=== PATIENT | male | born 1975 | race Caucasian/White ===

== ENCOUNTER 2022-06-07 13:29 | Emergency (ER) | payer BC ==
[~2022-06-07] VITALS: Ht 177.8 cm; Wt 140.6 kg
[2022-06-07 13:36] VITALS: BP_SYST 138
[2022-06-07] MEDS ORDERED: LIDOCAINE 2%, 20 ML MDV INJ ONE (13:45)
[2022-06-07] MEDS ORDERED: LIDOCAINE 1%, 20 ML MDV 20 ML ONE ×2 (14:23→15:04)
[2022-06-07] MEDS ORDERED: LIDOCAINE 2%, 20 ML MDV ONE (14:23)
[2022-06-07] MEDS ORDERED: BACITRACIN 1 GM OINT TP ONE (14:36)
[2022-06-07] MEDS ORDERED: KETOROLAC TROMETHAMINE 60 MG/2 ML VIAL IM ONE (14:45)
[2022-06-07] MEDS ORDERED: ceFAZolin SODIUM 1 GM VIAL IM ONE (14:45)
[2022-06-07] MEDS ORDERED: NAPR-690 PO (15:10)
[2022-06-07] MEDS ORDERED: CEPH-548 PO (15:10)
== END 2022-06-07 15:16 | disposition home or self-care (01) ==
LOC: SED 13:29
DX: S81.811A Laceration without foreign body, right lower leg, initial encounter (principal); Z79.899 Other long term (current) drug therapy; V18.0XXA Pedal cycle driver injured in noncollision transport accident in nontraffic accident, initial encounter; Y93.89 Activity, other specified; Y92.89 Other specified places as the place of occurrence of the external cause; Y99.8 Other external cause status
CPT/HCPCS: 73564; 99283; 99284; 96372; 12005; J0690; J1885; J2001 ×2

== ENCOUNTER 2022-06-09 09:59 | Emergency (ER) | payer BC ==
[~2022-06-09] VITALS: Ht 177.8 cm; Wt 140.6 kg
[~2022-06-09 09:59] MED LIST: CEPH-548 PO; NAPR-690 PO
[2022-06-09 10:13] VITALS: BP_SYST 137
--- NOTE | 2022-06-09 10:18 | NUR ---
Patient to [facility] chair one to gown for evaluation. Side rails up. Report given to SEGUN Lopez.
--- NOTE | 2022-06-09 10:22 | NUR ---
DR. MCCORMICK TO CHAIR ONE TO ASSESS PT.
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
[2022-06-09 10:37] VITALS: BP_SYST 135
[2022-06-09] MEDS ORDERED: BACITRACIN 1 GM OINT TP ONE ×2 (10:39→10:45)
--- NOTE | 2022-06-09 10:39 | NUR ---
Patient given written and verbal discharge instructions and verbalizes understanding. ER MD discussed with patient the results and treatment provided. Patient in stable condition. ID arm band removed. active bleeding. Patient educated on pain management and to follow up with PMD. Pain Scale 2\10. Opportunity for questions provided and answered. Medication side effect fact sheet provided.
== END 2022-06-09 10:37 | disposition home or self-care (01) ==
LOC: SED 09:59
DX: Z48.00 Encounter for change or removal of nonsurgical wound dressing (principal)
CPT/HCPCS: 99282

== ENCOUNTER 2022-06-19 09:24 | Emergency (ER) | payer BC ==
[~2022-06-19] VITALS: Ht 180.3 cm; Wt 142.9 kg
--- NOTE | 2022-06-19 09:25 | NUR ---
Patient to ER bed 6 to gown for evaluation. Side rails up. Report given to STEVIE CAST
[2022-06-19 09:30] VITALS: BP_SYST 180
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
[2022-06-19] MEDS ORDERED: BACITRACIN 1 GM OINT TP ONE (09:51)
--- NOTE | 2022-06-19 09:51 | NUR ---
MD DR MCCORMICK AT BEDSIDE
--- NOTE | 2022-06-19 10:02 | NUR ---
Patient given written and verbal discharge instructions and verbalizes understanding. ER MD DR MCCORMICK discussed with patient the results and treatment provided. Patient in stable condition. ID arm band removed. Patient educated on pain management and to follow up with PMD. Pain Scale 0/10. Opportunity for questions provided and answered. Medication side effect fact sheet provided.
[2022-06-19 10:05] VITALS: BP_SYST 170
== END 2022-06-19 10:05 | disposition home or self-care (01) ==
LOC: SED 09:24
DX: Z48.00 Encounter for change or removal of nonsurgical wound dressing (principal); Z79.899 Other long term (current) drug therapy
CPT/HCPCS: 99281

== ENCOUNTER 2022-06-29 09:11 | Emergency (ER) | payer BC ==
[~2022-06-29] VITALS: Ht 180.3 cm; Wt 142.9 kg
[2022-06-29 09:15] VITALS: BP_SYST 168
--- NOTE | 2022-06-29 09:15 | NUR ---
Placed in room 01 . Placed on air sampling and monitoring, blood pressure machine and pulse oximeter. To gown for exam. Side rails up. Report given to JAZLYN ROSALES.
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
--- NOTE | 2022-06-29 09:20 | NUR ---
ER DR. SOLORIO AT THE BEDSIDE EXAMINING PT
--- NOTE | 2022-06-29 09:40 | NUR ---
Pt tolerated suture removal of 30 stitches well. No redness, no discharge, no odor present.
--- NOTE | 2022-06-29 09:48 | NUR ---
Patient given written and verbal discharge instructions and verbalizes understanding. ER MD discussed with patient the results and treatment provided. Patient in stable condition. ID arm band removed. Patient educated on pain management and to follow up with PMD. Opportunity for questions provided and answered. Medication side effect fact sheet provided.
[2022-06-29 09:51] VITALS: BP_SYST 168
== END 2022-06-29 09:48 | disposition home or self-care (01) ==
LOC: SED 09:11
DX: Z48.02 Encounter for removal of sutures (principal); Z79.899 Other long term (current) drug therapy
CPT/HCPCS: 99281